=== PATIENT | female | born 2000 | race Caucasian/White ===

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

== ENCOUNTER → 2021-08-04 10:15 | Outpatient (BNVA) | payer BC, MEDICAID, SELFPAY | PROVIDERS: PCP Family Medicine; Visit Provider Internal Medicine | DX: N92.6 Irregular menstruation, unspecified (principal); R63.5 Abnormal weight gain; L70.9 Acne, unspecified; Z68.30 Body mass index [BMI] 30.0-30.9, adult | CPT/HCPCS: 99204 ==

== ENCOUNTER 2021-12-28 07:05 | Outpatient (CLI) | payer BC, MEDICAID, SELFPAY ==
--- NOTE | 2021-12-28 07:15 | US_ITS ---
WS: [id number] TRANSVAGINAL PELVIC ULTRASOUND HISTORY: Menstrual changes COMPARISON: None available. Uterus: 6.4 cm x 4.7 cm x 2.6 cm. Retroverted uterus. Uterus is normal size with no mass. Endometrium: 0.8 cm. Normal endometrium. Right ovary: 3.4 cm x 2.8 cm x 2.0 cm. Normal size ovary. No solid mass. There are numerous periphera l follicles with the largest measuring approximately 11 mm in diameter. Greater than 10 follicles in the periphery of the ovary. Left ovary: 3.5 cm x 3.1 cm x 2.8 cm. Normal size ovary with numerous peripheral follicles. No increa sed vascularity. The largest follicle measures 7 mm in diameter. Greater than 10 peripheral follicles . No free fluid. US/US transvaginal [id number] IMPRESSION: 1. Ultrasound findings consistent with polycystic ovarian disease. 2. Normal uterus.
== END 2021-12-28 07:06 | disposition home or self-care (01) ==
LOC: RAD 07:06
PROVIDERS: PCP Family Medicine; Visit Provider Internal Medicine
DX: N92.6 Irregular menstruation, unspecified (principal)
CPT/HCPCS: 76830

== ENCOUNTER 2024-07-23 07:59 | Outpatient (CLI) | payer BC, MEDICAID, SELFPAY ==
--- NOTE | 2024-07-23 08:00 | US_ITS ---
WS: [id number] ULTRASOUND LEFT BREAST HISTORY: BREAST LUMP, 24-year-old. COMPARISON: None available. TECHNIQUE: 2-D and Doppler. By ultrasound no abnormality is noted in the LEFT breast at 9:00 which is the area of the palpable mass. There is no skin thickening. No solid or cystic mass. US/US breast LT limited* [id number] IMPRESSION: BI-RADS: 1- Negative FOLLOW-UP: See Report No ultrasound abnormalities identified in the LEFT breast at 9:00.
== END 2024-07-23 08:00 | disposition home or self-care (01) ==
LOC: RAD 08:01
PROVIDERS: PCP Family Medicine; Visit Provider Nurse Practitioner Family
DX: N63.25 Unspecified lump in the left breast, overlapping quadrants (principal)
CPT/HCPCS: 76642

== ENCOUNTER 2024-12-11 22:53 | Emergency (ER) | payer BC, MEDICAID, SELFPAY ==
[2024-12-11 22:57] VITALS: BP 136/81; PULSE 109; RESP 16; TEMP 37.4; O2SAT 98; BMI 35.7
--- OUTSIDE RECORDS SUMMARY | 2024-12-11 23:05 | XMS_ITS | Encounter Summary ---
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 Name Role Phone Unavailable Primary Care Provider Unavailabl e Encounter Details Date Type Department Care Team (Latest Contact Info) Description 05/06/2008 Outpatient Historical [facility] [address] [place] [address] [facility] [address] [place] [address] James Cabrera III, MD [address] [place] [address] Unspecified Fall; Place of Occurrence, Home Social History Tobacco Use Types Packs/Day Years Used Date Smoking Tobacco: Never Assessed Comments Unknown Sex and Gender Information Value Date Recorded Sex Assigned at Not on file 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 Gender Identity Not on file Sexual Orientation Not on file documented as of this encounter Plan of Treatment Not on file documented as of this encounter Procedures Procedure Name Priority Date/Time Associated Diagnosis Comments XR WRIST 2 VW LEFT Routine 05/08/2008 2: 52 PM ELEVATOR TECHNICIAN XR FLUORO LESS THAN 1 HOUR Routine 05/08/2008 2:52 PM ELEVATOR TECHNICIAN documented in this encounter Results * XR WRIST 2 VW LEFT (05/08/2008 2:52 PM ELEVATOR TECHNICIAN) Anatomical Region Laterality Modality Wrist / Hand Other 05/08/2008 2:52 PM ELEVATOR TECHNICIAN Narrative 05/08/2008 4:08 PM ELEVATOR TECHNICIAN Exam: Wrist - Left Two Views Date/Time of Exam: May 08, 2008 2:52:19 PM History: Intra-operative fluoroscopy. Findings: Osseous detail limited by technique. Gross appearance of a buckle fracture of metadiaphysis of distal radius. Impression: As above. - Dictated By: Nathanael Shoemaker M.D. Electronically Signed By: Nathanael Shoemaker M.D. Date Signed: 05/08/08 JAW Procedure Note Nathanael Shoemaker MD - 05/08/2008 Exam: Wrist - Left Two Views Date/Time of Exam: May 08, 2008 2:52:19 PM History: Intra-operative fluoroscopy. Findings: Osseous detail limited by technique. Gross appearance of abuckle fracture of metadiaphysis of distal radius. Impression: As above. - Dictated By: Nathanael Shoemaker M.D. Electronically Signed By: Nathanael Shoemaker M.D. Date Signed: 05/08/08 JAW James Cabrera III, MD DIAGNOSTIC IMAGING ORD ERABLES Final Result * XR FLUORO < 1 HOUR (05/08/2008 2:52 PM ELEVATOR TECHNICIAN) Anatomical Region Laterality Modality Other 05/08/2008 2:52 PM ELEVATOR TECHNICIAN Narrative 05/08/2008 2:52 PM ELEVATOR TECHNICIAN Finalized by interface cleanup utility. No report expected. Procedure Note 06/15/2008 Finalized by interface cleanup utility. No report expected. James Cabrera III, MD DIAGNOSTIC IMAGING ORD ERABLES Final Result documented in this encounter Visit Diagnoses Diagnosis Unspecified fall Place of occurrence, home documented in this encounter
--- OUTSIDE RECORDS SUMMARY | 2024-12-11 23:05 | XMS_ITS | Clinical Summary ---
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
--- OUTSIDE RECORDS SUMMARY | 2024-12-11 23:06 | XMS_ITS | Data Portability ---
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 Overall she has been doing well. She is sexually active and is on control. She has never had a pap. Not available 02/22/2024 13:52:10 04/24/2024 04/24/2024 Patient here because she noticed a spot on her left breast that she is concerned about. Not available 04/24/2024 14:00:52 05/16/2024 05/16/2024 Lump appears slightly improved. She has stopped picking at it but forgot about doing hot/warm compresses. She will start these and start oral antibiotics. She will let us know if not improved. Not available 05/21/2024 21:51:09 06/26/2024 06/26/2024 Patient presents today with continued troubles with a spot on her left breast. Antibiotic and creams have not helped. I suspect this is more of a skin issue rather than a breast cancer concern but will get an ultrasound as the area has persisted beyond initial treatment. Not available 06/26/2024 14:02:24 Plan of Treatment Reminders Order Date Submit Date Provider Last Modified By Organization Details Last Modified Time Details Appointments None recorded. Lab streptococc us group A Ag screen 2024 025 [facility] [address] [place], [address], 5 17:31:21 pap, LB 2023 024 [facility], [address] [address], [address] [place], [address], 4 16:33:[address] referral [address] [facility], [address] [place], [address], 14:39:37 Procedures None recorded. Surgeries None recorded. Imaging US, breast, unilateral [address] [facility], [address] [place], [address], 14:10:23 Medication Orders Bactrim DS 800 mg-160 mg tablet 2023 025 [facility] [place], [facility] [place], [address], 5 09:03:55 mupirocin 2 % topical ointment 2023 025 [facility] [place], [address] [place] [address], [address], 18:26:22 Patient TargetsNo targets recorded. Patient Instructions Encounter Date Encounter Id Patient Instructions Last Modified By Organization Details Last Modified Time 02/22/2024 [id number] Call or return for questions or concerns. Not available 02/22/2024 13:46:27 04/24/2024 [id number] Call or return for questions or concerns. Not available 04/24/2024 14:00:38 05/16/2024 [id number] Call or return for questions or concerns. Not available 05/21/2024 21:51:07 06/26/2024 [id number] Call or return for questions or concerns. Not available 06/26/2024 14:02:29 Reason for Referral Counsel Referral for S kin lesion Referring Physician: Lida Chin, Family Medicine, Encounter Date: 06/26/2024 Results Created Date Observation Date Name Description Value Unit Range Abnormal Flag Note LastModifiedBy Organization Detail LastModifiedTime 02/22/20 24 02/26/2024 IMAGE -GUID ED PAP W/AGE BASED SCR,W /CT/N G comment This order for age-b ased cervi albina cance r and STI scree elen follo ws ACOG guide lines (PB 168, 140, FAQ07 1). See indiv idual assay s for perfo rming site locat ion. Not Available [address] [address] [place], [address], 02/26/2024 16:33:34 02/22/20 24 02/26/2024 IMAGE -GUID ED PAP W/AGE BASED SCR,W /CT/N G clinical information: normal Eliz l exam Not Available [address] [address] [place], [address], 02/26/2024 16:33:34 02/22/20 24 02/26/2024 IMAGE -GUID ED PAP W/AGE BASED SCR,W /CT/N G LMP: normal NONE GIVEN Not Available [address] [address] [place], [address], 02/26/2024 16:33:34 02/22/20 24 02/26/2024 IMAGE -GUID ED PAP W/AGE BASED SCR,W /CT/N G prev. Pap: normal NONE GIVEN Not Available [address] [address] [place], [address], 02/26/2024 16:33:34 02/22/20 24 02/26/2024 IMAGE -GUID ED PAP W/AGE BASED SCR,W /CT/N G prev. BX: normal NONE GIVEN Not Available [address] [address] [address], [place], [address], 02/26/2024 16:33:34 02/22/20 24 02/26/2024 IMAGE -GUID ED PAP W/AGE BASED SCR,W /CT/N G source: normal Cervi x, Endoc ervix Not Available [facility] [address] [address] [place], [address], 02/26/2024 16:33:34 02/22/20 24 02/26/2024 IMAGE -GUID ED PAP W/AGE BASED SCR,W /CT/N G statement of adequacy: normal Satis facto ry for evalu ation . Endoc ervic al/tr ansfo rmati on zone compo nent prese nt. Age and/o r menst rual statu s not provi ded Not Available [address] [address] [place], [address], 02/26/2024 16:33:34 02/22/20 24 02/26/2024 IMAGE -GUID ED PAP W/AGE BASED SCR,W /CT/N G general categorizati on: abnormal Cytol ogy Resul ts: Epith elial Cell Abnor malit y Not Available [facility] [address] [address] [address], [place], [address], 02/26/2024 16:33:34 02/22/20 24 02/26/2024 IMAGE -GUID ED PAP W/AGE BASED SCR,W /CT/N G interpretati on/result: abnormal Low Grade Squam ous Intra epith elial Lesio n (LSIL ) Not Available [facility] [address] [address] [place], [address], 02/26/2024 16:33:34 02/22/20 24 02/26/2024 IMAGE -GUID ED PAP W/AGE BASED SCR,W /CT/N G infection: normal Shift in vagin al parish sugge stive of bacte rial vagin osis. Not Available [facility] [address] [address] [place], [address], 02/26/2024 16:33:34 02/22/20 24 02/26/2024 IMAGE -GUID ED PAP W/AGE BASED SCR,W /CT/N G comment: normal This Pap test has been evalu ated with diana campbell techn ology . Sugge st clini albina corre latio n and follo w-up as clini twyla appro priat e Not Available [address] [address] [place], [address], 02/26/2024 16:33:34 02/22/20 24 02/26/2024 IMAGE -GUID ED PAP W/AGE BASED SCR,W /CT/N G cytotechnolo gist: normal PCM, CT( CP) CT Scree elen Locat ion: [address] [address] [place] [address] Not Available [address] [address] [place], [address], 02/26/2024 16:33:34 02/22/20 24 02/26/2024 IMAGE -GUID ED PAP W/AGE BASED SCR,W /CT/N G pathologist: normal Eliz benítez M.D., Board Certi fied in Anato christopher Patho logy and Cytop athol ogy. Phone : [phone] (elec troni c signa ture) Not Available [address] [address] [place], [address], 02/26/2024 16:33:34 02/22/20 24 02/26/2024 IMAGE -GUID ED PAP W/AGE BASED SCR,W /CT/N G comment EXPLA NATOR Y NOTE: The Pap is a scree elen test for cervi albina cance r. It is not a diagn ostic test and is subje ct to false negat anna and false posit anna resul ts. It is most relia ble when a satis facto ry sampl e, regul amisha obtai flako, is submi tted with relev ant clini albina findi ngs and histo ry, and when the Pap resul t is evalu ated along with histo hugo and curre nt clini albina infor theodore andrade. Not Available [address] [address] [place], [address], 02/26/2024 16:33:34 02/22/20 24 02/26/2024 IMAGE -GUID ED PAP W/AGE BASED SCR,W /CT/N G chlamydia trachomatis RNA, tma, urogenital NOT DETECT ED not detect ed normal Not Available [facility] - [address] [address] [place], [address], 02/26/2024 16:33:34 02/22/20 24 02/26/2024 IMAGE -GUID ED PAP W/AGE BASED SCR,W /CT/N G neisseria gonorrhoeae RNA, tma, urogenital NOT DETECT ED not detect ed normal Not Available [facility] - [address] [address] [place], [address], 02/26/2024 16:33:34 02/22/20 24 02/26/2024 IMAGE -GUID ED PAP W/AGE BASED SCR,W /CT/N G comment The augusto tical perfo rmanc e isaura cteri stics of this assay , when used to test SureP ath(T M) speci mens have been deter mined by [facility]. The modif icati ons have not been clear ed or appro laura by the FDA. This assay has been valid ated pursu ant to the CLIA regul ation s and is used for clini albina purpo ses. For addit ional infor brooklynn vickers e refer to https ://ed ucati on.qu david STEERads tics. com/f aq/FA Q154 (This link is being provi ded for infor theodore andrade/ christiano benítez purpo ses only. ) Not Available [facility] [address] [address] [address], [place], [address], 02/26/2024 16:33:34 11/04/19 25 11/03/2024 strep tococ cus group A Ag scree n Strep negati ve Not Available [facility] ([facility]) [address] [place], [address], 11/03/2024 17:19:53 07/23/19 25 07/23/2024 US, brooke hernadez, alonsoyun venkata No observ ation record ed. [email or web address] [facility] [address] [place], [address], 07/26/2024 16:13:29 Result Notes None recorded. Problems Name Problem SNOMED Code Status Onset Date Resolution Date Notes Provider Name and Address Organization Details Recorded Time Abnormal cervical Papanicolaou smear 111837539 Active 2023 recheck 02/2025 ABBY khalil [facility] 4 14:14:33 Polycystic ovary syndrome 246911925 Active 2021 ABBY khalil [facility] 4 14:13:55 Problem Notes None recorded. Procedures Surgical History Date Name Laterality Status Provider Name and Address Organization Details Recorded Time 07/23/19 ultrasonography of left breast completed ABBY OSEI [facility] 07/23/2024 11:44:20 02/22/20 24 screening for malignant neoplasm of cervix completed ABBY OSEI [facility] 02/28/2024 14:12:20 Tonsillectomy completed ABBY OSEI [facility] 02/22/2024 13:28:14 Imaging Results None recorded. Procedure Notes None recorded. Medical Equipment None Reported. Allergies No known drug allergies Medications Name Sig Start Date Stop Date Status Note LastModified by Organization Details LastModified Time amoxicill in 500 mg capsule Take 2 capsules every 12 hours by oral route for 7 days. 04/12 completed Not Available Not Available Not Available azithromy steven 250 mg tablet TAKE 4 TABLETS BY MOUTH EVERY DAY. take ALL at ONCE 12/20 completed Not Available Not Available Not Available hydrocodo ne 5 mg-acetam inophen 325 mg tablet TAKE 1 TO 2 TABLETS BY MOUTH every 5 hours NEEDED FOR PAIN 12/20 completed Not Available Not Available Not Available metronida zole 500 mg tablet TAKE 1 TABLET BY MOUTH TWICE DAILY for 7 days 12/20 completed Not Available Not Available Not Available amoxicill in 875 mg tablet TAKE 1 TABLET BY MOUTH EVERY TWELVE HOURS for 7 days 12/20 completed Not Available Not Available Not Available mupirocin 2 % topical ointment APPLY A SMALL AMOUNT TO THE AFFECTED AREA BY TOPICAL ROUTE 3 TIMES PER DAY 11/03 completed Not Available Not Available Not Available metformin ER 500 mg tablet,ex tended release 24 hr TAKE 2 TABLETS BY MOUTH TWICE DAILY active Not Available Not Available No t Available Bactrim DS 800 mg-160 mg tablet Take 1 tablet every 12 hours by oral route for 7 days. 06/26 completed Not Available Not Available Not Available metformin two times daily 12/20 completed 0; Recorded 04/13/20 4:28PM by Oni Multani, Office Visit; Not Available Not Available Not Available cefixime 400 mg capsule TAKE 2 CAPSULES BY MOUTH ONCE daily. take both capsules as single DOSE 12/20 completed Not Available Not Available Not Available Tri-VyLib ra (28) 0.18 mg(7)/0.2 15 mg(7)/0.2 5 mg(7)-0.0 35 mg tablet TAKE 1 TABLET BY MOUTH EVERY DAY active Not Available Not Available No t Available Vitals Date Recorded Body height Body mass index (BMI) Body weight Oxygen saturation Oxygen saturation in Arterial blood by Pulse oximetry Heart rate Respiratory rate Systolic And Diastolic Provider Name and Address Organization Details Last Updated DateTime 5 165.1 cm 33.9 kg/m2 31741.8 4 g 99 % 99 % 78 /min 18 /min 122/84 mm[Hg] ABBY OSEI [facility], [facility] 5 13:53:19 Date Recorded Body height Body mass index (BMI) Body weight Body temperature Heart rate Oxygen saturation Oxygen saturation in Arterial blood by Pulse oximetry Systolic And Diastolic Provider Name and Address Organization Details Last Updated DateTime 5 165.1 cm 36 kg/m2 67994.7 5 g 98.1 [degF] 91 /min 98 % 98 % 132/74 mm[Hg] Cheryl Gomez [facility] 5 17:16:51 Date Recorded Body height Body mass index (BMI) Body weight Oxygen saturation Oxygen saturation in Arterial blood by Pulse oximetry Heart rate Respiratory rate Systolic And Diastolic Provider Name and Address Organization Details Last Updated DateTime 4 165.1 cm 30.6 kg/m2 60531 g 99 % 99 % 82 /min 18 /min 116/76 mm[Hg] ABBY OSEI [facility] 4 13:30:16 Date Recorded Body height Body mass index (BMI) Body weight Oxygen saturation Oxygen saturation in Arterial blood by Pulse oximetry Heart rate Respiratory rate Systolic And Diastolic Provider Name and Address Organization Details Last Updated DateTime 4 165.1 cm 32.4 kg/m2 41407.5 1 g 98 % 98 % 76 /min 18 /min 114/68 mm[Hg] ABBY FARNAZ [facility] 4 13:28:20 Date Recorded Body height Body mass index (BMI) Body weight Oxygen saturation Oxygen saturation in Arterial blood by Pulse oximetry Heart rate Respiratory rate Systolic And Diastolic Provider Name and Address Organization Details Last Updated DateTime 4 165.1 cm 32.9 kg/m2 02959.2 9 g 99 % 99 % 70 /min 18 /min 128/72 mm[Hg] ABBY FARNAZ [facility] 4 13:54:44 Social History Question Answer Notes LastModified by Organizat ion Details LastModified Time Tobacco Smoking Status Never Smoker CEE khalil [facility] 04/12/2023 15:39:23 What Is Your Level Of Caffeine Consumption? Occasional [email or web address] Information not available 02/22/2024 What Was The Date Of Your Most Recent Tobacco Screening? 11/03/2024 [email or web address] Information not available 11/03/2024 Sex: Unknown Functional Status Question Answer Note LastModified by Organizat ion Details LastModified Time Do you use any illicit or recreational drugs? No [email or web address] Information not available 02/22/2024 What is your level of alcohol consumption? None [email or web address] Information not available 04/12/2023 Are you currently employed? Yes [email or web address] Information not available 02/22/2024 Are you able to care for yourself? Yes [email or web address] Information not available 02/22/2024 Mental Status None recorded. Family History Nothing Reported. Medical History No medical history recorded. Gynecological HistoryNo gynecological history recorded. Obstetrics History GPAL:G 0 P 0 0 0 0 Immunizations Vaccine Type Date Status Note Provider Nam e and Address Organization Details Recorded Time meningococcal B, recombinant 7 completed KORIN XIE null, [facility] 12/21/2023 18:36:07 meningococcal B, OMV 9 completed KORIN XIE null, [facility] 12/21/2023 18:36:07 IPV 2 completed KORIN XIE null, [facility] 12/21/2023 18:36:08 IPV 3 completed KORIN XIE null, [facility] 12/21/2023 18:36:08 IPV 7 completed KROIN XIE null, [facility] 12/21/2023 18:36:08 IPV 1 completed KORIN XIE null, [facility] 12/21/2023 18:36:08 MMR 3 completed KORIN XIE null, [facility] 12/21/2023 18:36:08 MMRV 7 completed KORIN XIE null, [facility] 12/21/2023 18:36:08 pneumococcal conjugate PCV 7 2 completed KORIN XIE null, [facility] 12/21/2023 18:36:08 Tdap 4 completed KORIN XIE null, [facility] 12/21/2023 18:36:08 varicella 2 completed KORIN XIE null, [facility] 12/21/2023 18:36:08 HPV, quadrivalent 4 completed KORIN XIE null, [facility] 12/21/2023 18:36:08 HPV, quadrivalent 4 completed KORIN XIE null, [facility] 12/21/2023 18:36:08 HPV, quadrivalent 4 completed KORIN THOMPSONRIS null, [facility] 12/21/2023 18:36:08 Hep B, adolescent or pediatric 2 completed KORIN IXE null, [facility] 12/21/2023 18:36:08 Hep B, adolescent/high risk infant 1 completed KORIN XIE null, [facility] 12/21/2023 18:36:08 Hep B, adolescent/high risk infant 1 completed KORIN XIE null, [facility] 12/21/2023 18:36:08 Hep A, ped/adol, 2 dose 9 completed KORIN XIE null, [facility] 12/21/2023 18:36:08 Hib (PRP-T) 2 completed KORIN XIE null, [facility] 12/21/2023 18:36:08 Hib (PRP-T) 3 completed KORIN XIE null, [facility] 12/21/2023 18:36:08 Hib (PRP-T) 2 completed KORIN XIE null, [facility] 12/21/2023 18:36:08 Hib (PRP-T) 1 completed KORIN XIE null, [facility] 12/21/2023 18:36:08 meningococcal MCV4P 4 completed KORIN XIE null, [facility] 12/21/2023 18:36:08 meningococcal MCV4P 9 completed KORIN XIE null, [facility] 12/21/2023 18:36:08 DTaP 2 completed KORIN XIE null, [facility] 12/21/2023 18:36:08 DTaP 3 completed KORIN XIE null, [facility] 12/21/2023 18:36:08 DTaP 7 completed KORIN XIE null, [facility] 12/21/2023 18:36:08 DTaP 2 completed KORIN XIE null, [facility] 12/21/2023 18:36:08 DTaP 1 completed KORIN XIE null, [facility] 12/21/2023 18:36:08 Past Encounters Encounter ID Performer Location Encounter Start Date Encounter Closed Date Diagnosis/Indication Diagnosis SNOMED-CT Code Diagnosis ICD10 Code Diagnosis Note [id number] BRANDON HARVEY PA-C [facility] ([facility]) [address] [place] [phone] 08/26/2022 12:21:27 08/26/2022 12:54:30 Acute pharyngitis 920042359 J02.9 [id number] Erum Garcia MD [facility] ([facility]) [address] [place], [place] [phone] 04/12/2023 15:32:54 04/12/2023 17:14:06 Hypertrophy of tonsils 50251117 J35.1 she has had recurrnt tonsilar stones or food deposition in tonsils that require manual removal as well as intermitte nt snoring. I feel considerat ion for tonsillect daphne is warranted. [id number] LIDA CHIN [facility] ([facility]) [address] [place], [place] [phone] 04/23/2023 15:58:07 05/01/2023 08:53:32 Acute pharyngitis 735711473 J02.9 [id number] El Joy DO [facility]) [address] [place], [place] [phone] 07/12/2023 16:44:11 07/12/2023 18:52:33 Contraception care 425788033 Z30.40 07/12/23- Discussed options of control, pt prefers oral contracept charlie. Will start Tri Sprintec. Counseled on medication , possible side effects. [id number] REAGAN HASTINGS SCREENING REPRESENTATIVE [facility] ([facility]) [address] [place], [place] [phone] 10/01/2023 14:47:19 10/01/2023 15:57:52 Venereal disease screening 996094137 Z11.3 Will call patient with results . [id number] Jacob Wheat MD [facility] ([facility]) [address] [place], [place] [phone] 12/21/2023 18:16:49 12/21/2023 18:46:40 Strain of calf muscle 376943392 S86.112A Likely mild strain. Discussed exercises and stretches to do at home. Warm moist heat and anti-infla mmatories as needed. Follow-up with PCP if symptoms do not improve. [id number] TAMMY BENÍTEZ APRN [facility] ([facility]) [address] [place] [phone] 01/27/2024 15:23:17 01/27/2024 16:07:12 [id number] LIDA CHIN [facility] ([facility]) [address] [place] [phone] 02/22/2024 13:09:08 02/22/2024 14:02:23 Gynecologic examination 60220025 Z01.291 [id number] LIDA CHIN [facility] ([facility]) [address] [place] [phone] 04/24/2024 13:02:34 04/24/2024 14:05:01 Skin lesion 11585593 L98.9 [id number] LIDA CHIN [facility] ([facility]) [address] [place] [phone] 05/16/2024 12:57:13 05/16/2024 14:15:58 Breast lump 13857331 N63.0 Warm compresses at home. [id number] LIDA CHIN [facility] ([facility]) [address] [place] [phone] 06/26/2024 13:02:32 06/26/2024 14:05:06 Skin lesion 87100516 L98.9 Breast lump 43872934 N63 .0 [id number] NINFA HARRISON [facility]) [address] [place] [phone] 11/03/2024 17:05:50 11/04/2024 15:14:49 Sore throat 063052177 J02.9 Acute stanton l pharyngitis 373874479 J02.9 Push cold oral fluids including Popsicles. Alternate tylenol/mo zainab for fever or discomfort .May use throat lozenges, chlorasept ic spray, or saltwater gargles.If you develop worsening symptoms such as unable to swallow, persistant fever, or concerns arise then return for re-eval. Health Concerns Section Related Observation LastModified by Organization Detai ls LastModified Time None Recorded Concern Status LastModified by Organization Details LastModified Time None Recorded Advance Directives Directive None Recorded Payers Insurance Date Sequence Insurance Name Policy Number Policy Stinson Covered Member ID Stinson Member ID Guarantor Name 11/03/2024 1 [employer] [place] [place]AC[place] - [place]MO) [id number] Ava Covarrubias [id number] 75 Ava Covarrubias Notes Date Note Type Note Provider Name and Address Organization Details Recorded Time 02/22/2024 text/html Annual GYNReport ed bypatient.History:no gynecologic complaints Menstrual cycle:normal menses Vulva:no genital lesion Vagina:normal vaginal discharge Breast:no breast pain Sexual complaints:no sexual complaints; no pain during intercourse; normal libido Psychological symptoms:no depression; no anxiety LIDA CHIN, [address], [address] [place] [address], [facility] 02/22/2024 13:52:53 04/24/2024 text/html Skin LesionRepor luiz bypatient.Location:b reast Severity:mild Duration:2 weeks Timing:abrupt Context:no known trigger Alleviating Factors:none Aggravating Factors:none Prior Treatments:none LIDA CHIN, [address], [phone], [facility], [facility] 04/24/2024 14:02:35 05/16/2024 text/html Skin LesionRepor luiz bypatient.Location:b reast Severity:mild Duration:2 weeks Timing:abrupt Context:no known trigger Alleviating Factors:none Aggravating Factors:none Prior Treatments:none LIDA CHIN [address], [phone], [facility] 05/21/2024 21:51:23 06/26/2024 text/html Skin LesionRepor luiz bypatient.Location:b reast Severity:mild Duration:2 months Timing:abrupt Context:no known trigger Alleviating Factors:none Aggravating Factors:none Associated Symptoms:no fever Prior Treatments:none LIDA CHIN [address], [phone], [facility], LSujit 06/26/2024 14:03:46 11/03/2024 text/html walk in ptPt has bilateral ear pain and sore throat for 2 days. Is drinking well but decreased appetite. denies fever. Hurts to swallow. No meds taken for this. COBY REINOSO [address] [place], [address], [facility], Miya 11/03/2024 18:02:53 OBGyn Episode No OBEpisode recorded.
[2024-12-12 01:12] VITALS: BP 106/74; PULSE 78; RESP 16; O2SAT 93
--- NOTE | 2024-12-12 01:12 | W.ED.FEMALGU ---
HPI - Female Genitourinary General: Chief complaint: Urogenital-Female Stated complaint: vaginal itching with fever passed out Time Seen by Provider: 12/12/24 00:45 History of Present Illness: Patient presents following a syncope event after going to the bathroom. She is currently being treated for significant sores in her vaginal area. She is currently being treated for BV, yeast and concerns for herpes. She is on a fluconazole tablet along with Flagyl and valacyclovir. She has not started her valacyclovir yet. Patient presents because she is to continue to have some discomfort and pain and it causes her to pass out following using the restroom. Date of Last Menstrual Period: 09/14/24 Related Data Home Medications ?Medication ?Instructions ?Recorded ?Confirmed vitamin A 1 applic topical BID 12/06/24 12/09/24 Previous Rx's ?Medication ?Instructions ?Recorded metformin 500 mg tablet,extended 1,000 mg (2 x 500 mg) PO BID #360 06/11/24 release 24hr (osmotic) tabs metronidazole 500 mg tablet 500 mg PO BID 7 days #14 tabs 12/06/24 fluconazole 150 mg tablet 150 mg PO Q3D 2 doses #2 tabs 12/09/24 valacyclovir 1 gram tablet 1,000 mg PO Q8H 10 days #30 tabs 12/09/24 Allergies Allergy/AdvReac Type Severity Reaction Status Date / Time No Known Allergies Allergy Verified 12/11/24 23:02 Review of Systems : Reports: other (Please see HPI) Skin/Breast: Reports: other (Please see HPI) PFS ED PFSH: Medical History (Updated 12/12/24 @ 01:12 by Vikash Garcia DO) Abnormal menstruation Weight gain Acne Surgical History No pertinent past surgical history Family History Father No problems noted. Mother Degenerative disc disease Varicose vein of leg Social History Smoking and tobacco/nicotine status: never used tobacco/nicotine Second hand smoke exposure: No Alcohol intake: never Substance/Drug Use: never Adopted: No Caregiver/support person: No Lives independently: Yes Household members: other Details: grandmother Housing: House Marital status: Single Highest education level completed: High School Graduate service: No Current occupational status: employed Female Reproductive History: Date of last menstrual period: 09/14/24 Physical Exam Const: COMMON NORMALS: no acute distress, patient oriented x3 and alert Resp: COMMON NORMALS: normal respiratory effort and No retractions Cardio: COMMON NORMALS: regular rhythm RATE: tachycardic RHYTHM: regular rhythm : OTHER: Exam deferred Neuro: COMMON NORMALS: patient oriented x3 SENSORIUM/ORIENTATION: Yes alert Psych: COMMON NORMALS: mental status grossly normal, cooperative and normal affect Course Vital Signs: Vital signs: Vital Signs Temperature 98.4 F 12/12/24 01:17 Pulse Rate 84 12/12/24 01:28 Respiratory Rate 16 12/12/24 01:28 Blood Pressure 105/74 12/12/24 01:28 Pulse Oximetry 94 12/12/24 01:28 Oxygen Delivery Me thod Room Air 12/12/24 01:17 MDM - Female Medical Decision Making Discussed symptoms and treatment with patient, following her discussion, patient declined vaginal exam. Patient has been seen twice prior and is on appropriate medications. I did provide her [id number] recommendations to help with the discomfort. Her symptoms are very consistent with a vasovagal response to the pain. Patient should follow-up closely with her primary care provider. No radiology studies performed this visit Discharge Plan Discharge Patient Disposition: Home Clinical Impression: Syncope, vasovagal Condition: Stable Prescriptions: No Action metformin 500 mg tablet extended release 24 hr 1,000 mg PO BID Qty: 360 3RF fluconazole 150 mg tablet 150 mg PO Q3D 0 Days Qty: 2 1RF Rx Instructions: may repeat second dose 72 hrs after first dose if symptoms persist valacyclovir 1 gram tablet 1,000 mg PO Q8H 10 Days Qty: 30 0RF vitamin A Cream 1 applic topical BID metronidazole 500 mg tablet 500 mg PO BID 7 Days Qty: 14 0RF Discharge Orders: Discharge ED (Routine); Ordered 12/12/24 Ordered By: Vikash Garcia Referrals: Marcelo Garcia MD [Primary Care Provider, Family Practice] Discharge Diet: Usual diet Discharge Activity: Increase activity as tolerated Patient Instructions: Bacterial Vaginosis (ED), Genital Herpes Infection (ED), Syncope (ED), Yeast Infection (ED), Opioid Safety, Pain Management, Patient Portal & Arthur Instructions Activity Restrictions/Additional Instructions: Please take all your medications as prescribed. Please follow-up closely with your primary care provider for recheck of your symptoms. You may try [id number] Maalox liquid and place a thin layer over your sores with a cotton swab or Q-tip. You may mix this with Orajel twice daily for additional pain control. Please be sure you are wearing cotton undergarments that are moisture wicking. 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
[2024-12-12 01:17] VITALS: BP 105/74; PULSE 82; RESP 16; TEMP 36.9; O2SAT 93
[2024-12-12 01:28] VITALS: BP 105/74; PULSE 84; RESP 16; O2SAT 94
== END 2024-12-12 01:29 | disposition home or self-care (01) ==
PROVIDERS: Emergency Provider Student in an Organized Health Care Education/Training Program; PCP Family Medicine
DX: R55 Syncope and collapse (principal)
CPT/HCPCS: 99282